=== PATIENT | male | born 1955 | race Caucasian/White ===

== ENCOUNTER 2018-06-14 09:23 | Observation (INO) | payer BC, MEDICARE, OTHER ==
[2018-06-14] MEDS ORDERED: MORPHINE SULFATE 4 MG/ML SYRINGE IVP STA (10:24)
--- NOTE | 2018-06-14 10:35 | ED ---
Abdominal Pain HPI - General Chief Complaint: Abdominal Pain Stated Complaint: ABDOMINAL PAIN Time Seen by Provider: 06/14/18 09:52 Source: patient Mode of arrival: ambulatory Limitations: no limitations - History of Present Illness Initial Comments: 63-year-old male with past medical history of diabetes, hypertension presenting today for chief complaint of abdominal pain 3 days. Patient states he has had abdominal pain for the past 2-3 days, states is his mid abdomen that has been increasing in intensity for the past 2-3 days. He states it is sharp without radiation. He states he has had on-and-off nausea and no appetite. He denies chest pain, dyspnea, dyspnea exertion, headache, fever, chills, vomiting, diarrhea, constipation, melena, hematochezia, hematemesis. He denies leg swelling, back pain, dysuria, urgency frequency, testicular pain. Remaining review of systems negative. Last BM this morning-normal. Pt has had an open abdominal surgery after a mesentery tear from trauma, >10 years ago. Upon arrival she is afebrile, mild elevation of blood pressure. Remaining VS within acceptable limits. - Related Data Home Medications Medication Instructions Recorded Confirmed Insulin Degludec [Tresiba] 70 units SQ HS 06/14/18 06/14/18 Insulin NPH/Reg Insulin 70/30 50 unit SQ AC-TID 06/14/18 06/14/18 [humuLIN 70/30 VIAL] Lisinopril [Zestril] 20 mg PO DAILY 06/14/18 06/14/18 Tamsulosin [Flomax] 0.4 mg PO HS 06/14/18 06/14/18 metFORMIN HCL [Glucophage] 1,000 mg PO BID 06/14/18 06/14/18 Previous Rx's Medication Instructions Recorded Atorvastatin [Lipitor] 80 mg PO DAILY #30 tab 09/06/14 Metoprolol Tartrate [Lopressor] 50 mg PO BID #60 tab 09/06/14 Nitroglycerin Sl Tabs [Nitrostat] 0.4 mg SUBLINGUAL Q5M PRN #25 tab 09/06/14 amLODIPine [Norvasc] 10 mg PO DAILY #30 tab 09/06/14 hydrALAZINE HCL [Apresoline] 50 mg PO TID #90 tab 09/06/14 Allergies Allergy/AdvReac Type Severity Reaction Status Date / Time No Known Allergies Allergy Verified 06/14/18 10:12 Review of Systems ROS Statement: Those systems with pertinent positive or pertinent negative responses have been documented in the HPI. ROS Other: All systems not noted in ROS Statement are negative. Past Medical History Past Medical History: Diabetes Mellitus, Hyperlipidemia, Hypertension, Sleep Apnea/CPAP/BIPAP History of Any Multi-Drug Resistant Organisms: None Reported Past Surgical History: Heart Catheterization, Orthopedic Surgery, Tonsillectomy Additional Past Surgical History / Comment(s): Surgery for a previous bowel perforation. UPPP, torn bicept. Past Anesthesia/Blood Transfusion Reactions: No Reported Reaction Past Psychological History: No Psychological Hx Reported Smoking Status: Current every day smoker Past Alcohol Use History: Rare Past Drug Use History: None Reported - Past Family History Father Family Medical History: Diabetes Mellitus, Hypertension, Myocardial Infarction (ME) General Exam - General Exam Comments Initial Comments: General: The patient is awake and alert, pt appears uncomfortable Eye: Pupils are equal, round and reactive to light, extra-ocular movements are intact. No nystagmus. There is normal conjunctiva bilaterally. No signs of i cterus. Ears, nose, mouth and throat: There are moist mucous membranes and no oral lesions. Neck: The neck is supple, there is no tenderness or JVD. Cardiovascular: There is a regular rate and rhythm. No murmur, rub or gallop is appreciated. Respiratory: Lungs are clear to auscultation, respirations are non-labored, breath sounds are equal. No wheezes, stridor, rales, or rhonchi. Gastrointestinal: No noted diaphoresis, jaundice, pallor, protecting postures or squirming. Symmetrical pigmentation of abdomen without signs of inflammation. Large midline scar from epigastric region to below the navel. Umbilicus mildline, inverted without swelling. No dilated veins. Abdomen contour obese. No visible masses. No peristalsis, aortic pulsations, or ventral hernia. Bowel sounds audible in all 4 quadrants, unremarkable. Tenderness to palpation of the mid/lower abdomen diffusely, rigidity or guarding. No protecting postures.. Liver edge, not palpable. Spleen edge, right and left kidney not palpable. Superior bladder margin non-tender. Special Testing: Negative Star, Rovsing, McBurney, Jillian, cutaneous hyperesthesia. Iliopsoas and obturator tests negative bilaterally. Negative Heel Jar test. No CVA tenderness. Digital rectal exam deferred. Negative west turners or cullens sign Musculoskeletal: Normal ROM, no tenderness. Strength 5/5. Sensation intact. Pulses equal bilaterally 2+. Neurological: A&O x 3. CN II-XII intact, There are no obvious motor or sensory deficits. Coordination appears grossly intact. Speech is normal. Skin: Skin is warm and dry and no rashes or lesions are noted. Psychiatric: Cooperative, appropriate mood & affect, normal judgment. Limitations: no limitations Course Vital Signs 06/14/18 06/14/18 06/14/18 09:34 11:45 12:28 Temperature 98.1 F Pulse Rate 89 59 L 55 L Respiratory 18 18 18 Rate Blood Pressure 156/72 131/75 115/89 O2 Sat by Pulse 98 97 94 L Oximetry Medical Decision Making - Medical Decision Making Laboratory studies are within acceptable limits. Elevation of alk phos noted, transaminases within normal limits. Hemoglobin stable. EKG revealed no acute findings, troponin negative. Patient denied chest pain or dyspnea. Complaints abdominal in nature. Patient had no rigidity or guarding. But did have significant tenderness to deep palpation face of the mid abdomen. Patient does appear mildly jaundiced. CT revealed findings consistent with probable pancreatic carcinoma of the head with metastasis to the lungs, liver and possibly colon. Patient denies melena hematochezia. Findings were discussed with patient including concern for malignancy with metastases. Patient will be admitted for evaluation by otalgia oncology. Patient will be given pain medication. Patient will be admitted to Dr. Chaudhry, who accepted admission after speaking with Dr. Weston. Case is discussed in detail with Dr. Weston time provider who is agreeable plan of care and patient admission. I answered all patient's questions to the best my ability prior to transfer to the floor. Patient provided copy of CT read, after request. . - Lab Data Result diagrams: 06/14/18 11:13 06/14/18 11:13 Lab Results 06/14/18 06/14/18 06/14/18 Range/Units 11:13 11:13 11:13 WBC 11.0 H (3.8-10.6) k/uL RBC 5.58 (4.30-5.90) m/uL Hgb 14.5 (13.0-17.5) gm/dL Hct 43.2 (39.0-53.0) % MCV 77.4 L (80.0-100.0) fL MCH 26.0 (25.0-35.0) pg MCHC 33.6 (31.0-37.0) g/dL RDW 15.3 (11.5-15.5) % Plt Count 438 (150-450) k/uL Neutrophils % 73 % Lymphocytes % 14 % Monocytes % 8 % Eosinophils % 2 % Basophils % 1 % Neutrophils # 8.0 H (1.3-7.7) k/uL Lymphocytes # 1.6 (1.0-4.8) k/uL Monocytes # 0.9 (0-1.0) k/uL Eosinophils # 0.3 (0-0.7) k/uL Basophils # 0.1 (0-0.2) k/uL Sodium 134 L (137-145) mmol/L Potassium 5.2 H (3.5-5.1) mmol/L Chloride 96 L (98-107) mmol/L Carbon Dioxide 26 (22-30) mmol/L Anion Gap 12 mmol/L BUN 22 H (9-20) mg/dL Creatinine 0.85 (0.66-1.25) mg/dL Est GFR (CKD-EPI)AfAm >90 (>60 ml/min/1.73 sqM) Est GFR (CKD-EPI)NonAf >90 (>60 ml/min/1.73 sqM) Glucose 169 H (74-99) mg/dL Calcium 9.9 (8.4-10.2) mg/dL Total Bilirubin 0.8 (0.2-1.3) mg/dL AST 20 (17-59) U/L ALT 31 (21-72) U/L Alkaline Phosphatase 158 H (38-126) U/L Troponin I 0.022 (0.000-0.034) ng/mL Total Protein 6.5 (6.3-8.2) g/dL Albumin 3.9 (3.5-5.0) g/dL Amylase <30 L (30-110) U/L Lipase 29 (23-300) U/L Urine Color Urine Appearance (Clear) Urine pH (5.0-8.0) Ur Specific [place] (1.001-1.035) Urine Protein (Negative) Urine Glucose (UA) (Negative) Urine Ketones (Negative) Urine Blood (Negative) Urine Nitrite (Negative) Urine Bilirubin (Negative) Urine Urobilinogen (<2.0) mg/dL Ur Leukocyte Esterase (Negative) 06/14/18 Range/Units 11:50 WBC (3.8-10.6) k/uL RBC (4.30-5.90) m/uL Hgb (13.0-17.5) gm/dL Hct (39.0-53.0) % MCV (80.0-100.0) fL MCH (25.0-35.0) pg MCHC (31.0-37.0) g/dL RDW (11.5-15.5) % Plt Count (150-450) k/uL Neutrophils % % Lymphocytes % % Monocytes % % Eosinophils % % Basophils % % Neutrophils # (1.3-7.7) k/uL Lymphocytes # (1.0-4.8) k/uL Monocytes # (0-1.0) k/uL Eosinophils # (0-0.7) k/uL Basophils # (0-0.2) k/uL Sodium (137-145) mmol/L Potassium (3.5-5.1) mmol/L Chloride (98-107) mmol/L Carbon Dioxide (22-30) mmol/L Anion Gap mmol/L BUN (9-20) mg/dL Creatinine (0.66-1.25) mg/dL Est GFR (CKD-EPI)AfAm (>60 ml/min/1.73 sqM) Est GFR (CKD-EPI)NonAf (>60 ml/min/1.73 sqM) Glucose (74-99) mg/dL Calcium (8.4-10.2) mg/dL Total Bilirubin (0.2-1.3) mg/dL AST (17-59) U/L ALT (21-72) U/L Alkaline Phosphatase (38-126) U/L Troponin I (0.000-0.034) ng/mL Total Protein (6.3-8.2) g/dL Albumin (3.5-5.0) g/dL Amylase (30-110) U/L Lipase (23-300) U/L Urine Color Yellow Urine Appearance Clear (Clear) Urine pH 5.5 (5.0-8.0) Ur Specific [place] 1.022 (1.001-1.035) Urine Protein Trace H (Negative) Urine Glucose (UA) Negative (Negative) Urine Ketones Negative (Negative) Urine Blood Negative (Negative) Urine Nitrite Negative (Negative) Urine Bilirubin Negative (Negative) Urine Urobilinogen <2.0 (<2.0) mg/dL Ur Leukocyte Esterase Negative (Negative) Disposition Clinical Impression: Abdominal pain, Pancreatic carcinoma Disposition: ADMITTED IP TO THIS [facility] Condition: Stable Is patient prescribed a controlled substance at d/c from ED?: No Referrals: Loc Gonzalez MD [Primary Care Provider] - 1-2 days Time of Disposition: 13:43 Decision to Admit Reason: Admit from EC Decision Date: 06/14/18 Decision Time: 13:43
[2018-06-14 12:00] LABS: ALT 31 U/L (21-72); Albumin 3.9 g/dL (3.5-5.0); Alkaline Phosphatase 158 U/L (38-126); Amylase <30 U/L (30-110); Blood Urea Nitrogen 22 mg/dL (9-20); Carbon Dioxide 26 mmol/L (22-30); Glucose 169 mg/dL (74-99); Total Protein 6.5 g/dL (6.3-8.2)
[2018-06-14 12:07] LABS: AST 20 U/L (17-59); Anion Gap 12 mmol/L; Calcium 9.9 mg/dL (8.4-10.2); Chloride 96 mmol/L (98-107); Lipase 29 U/L (23-300); Potassium 5.2 mmol/L (3.5-5.1); Sodium 134 mmol/L (137-145); Total Bilirubin 0.8 mg/dL (0.2-1.3)
[2018-06-14 12:15] LABS: Basophils # (A) 0.1 k/uL (0-0.2); Basophils % (A) 1 %; Eosinophils # (A) 0.3 k/uL (0-0.7); Eosinophils % (A) 2 %; HCT 43.2 % (39.0-53.0); HGB 14.5 gm/dL (13.0-17.5); Lymphocytes # (A) 1.6 k/uL (1.0-4.8); Lymphocytes % (A) 14 %; MCHC 33.6 g/dL (31.0-37.0); MCV 77.4 fL (80.0-100.0); Mean Platelet Volume 6.8; Monocytes # (A) 0.9 k/uL (0-1.0); Monocytes % (A) 8 %; Neutrophils % (A) 73 %; Platelet Count 438 k/uL (150-450); RBC 5.58 m/uL (4.30-5.90); RDW 15.3 % (11.5-15.5)
[2018-06-14 12:50] LABS: Appearance,Urine Clear (Clear); Bilirubin,Urine Negative (Negative); Blood,Urine Negative (Negative); Color,Urine Yellow; Glucose,Urine (UA) Negative (Negative); Ketones,Urine Negative (Negative); Leukocyte Esterase,Urine Negative (Negative); Nitrite,Urine Negative (Negative); PH, Urine 5.5 (5.0-8.0); Protein,Urine Trace (Negative); Specific Gravity,Urine 1.022 (1.001-1.035); Urobilinogen,Urine <2.0 mg/dL (<2.0)
--- NOTE | 2018-06-14 13:18 | CT ---
EXAMINATION TYPE: CT abdomen pelvis w con DATE OF EXAM: 06/14/2018 COMPARISON: HISTORY: Mid Abdominal pain. CT DLP: 1485.1 mGycm Automated exposure control for dose reduction was used. TECHNIQUE: Helical acquisition of images from the lung bases through the pelvis have been completed. CONTRAST: Performed without Oral Contrast and with IV Contrast, patient injected with 100 mL of Isovue 300. FINDINGS: LUNG BASES: Multiple scattered and subpleural subcentimeter nodular densities are present at the lung bases and have developed in the interval. No pleural or pericardial effusion. AORTA: No significant abnormality is appreciated. LIVER/GB: There are new low dense foci within the liver of varying sizes, the largest on axial image #16 measures approximately 3.7 cm in greatest transverse dimension by 4 cm in cephalad to caudal dime nsion towards the dome. Some peripheral enhancement is present, gallbladder is unremarkable PANCREAS: Suspect there is some mild pancreatic atrophy, pancreatic duct appears somewhat prominently in the body and tail. Suspect there is a head of pancreas mass measuring approximately 3.6 x 3.9 x 3 .9 cm. SPLEEN: No significant abnormality is seen. ADRENALS: No significant abnormality is seen. KIDNEYS: No significant abnormality is seen. REPRODUCTIVE ORGANS: Prostate is enlarged. BOWEL: Questionable annular lesion, focal wall thickening on axial image 19 in the splenic flexure o f the colon. No bowel obstruction. FREE AIR: No Free Air visible. ASCITES: None visible. PELVIC ADENOPATHY: None visualized. RETROPERITONEAL ADENOPATHY: Subcentimeter retroperitoneal nodes are present, nodes to the left later al aspect of the superior mesenteric artery on axial image 36 and 38 measures approximately 1.3 and 1 cm short axis respectively and were not seen on previous exam. URINARY BLADDER: No significant abnormality is seen. OSSEOUS STRUCTURES: Prosthesis in right hip arthroplasty may cause decrease sensitivity, there is st reak artifact present. IMPRESSION: METASTATIC DISEASE. SUSPECT PANCREATIC CARCINOMA PRIMARY. DIFFICULT TO EXCLUDE COLONIC MASS, FINDINGS MAY BE DUE TO LACK OF DISTENTION HOWEVER. No oral contrast was administered. Report relayed to Varghese cullen at the time of interpretation.
[2018-06-14] MEDS ORDERED: ONDANSETRON 4 MG/2 ML VIAL IVP PRN (13:43)
[2018-06-14] MEDS ORDERED: NALOXONE 0.4 MG/ML 1 ML VIAL IV PRN (13:43)
[2018-06-14] MEDS ORDERED: ALPRAZolam 0.25 MG TAB PO PRN (13:43)
[2018-06-14] MEDS ORDERED: HYDROmorphone 0.5 MG/0.5 ML SYRINGE IVP STA (13:59)
[2018-06-14] MEDS: SODIUM CHLORIDE 0.9% 1,000 ML IV SCH (15:35)
[2018-06-14 16:30] VITALS: BMI 34.5
[2018-06-14 17:16] LABS: Glucose,Whole Blood 168 mg/dL (75-99)
[2018-06-14] MEDS ORDERED: NITROGLYCERIN SL TABS 0.4 MG TAB SUBLINGUAL PRN (18:12)
[2018-06-14] MEDS: HYDROcodone/APAP 5-325MG 1 EACH TAB PO PRN (18:49)
[2018-06-14] MEDS: HYDROmorphone 0.5 MG/0.5 ML SYRINGE IVP PRN ×2 (18:51→22:58)
[2018-06-14 20:12] LABS: Glucose,Whole Blood 202 mg/dL (75-99)
[2018-06-14] MEDS: hydrALAZINE HCL 50 MG TAB PO SCH (20:41)
[2018-06-14] MEDS: METOPROLOL TARTRATE 50 MG TAB PO SCH (20:41)
[2018-06-14] MEDS: TAMSULOSIN 0.4 MG CAP.ER.24H PO SCH (20:41)
[2018-06-14] MEDS: ATORVASTATIN 80 MG TAB PO SCH (20:41)
[2018-06-14] MEDS: INSULIN ASPART (NovoLOG) 100 UNIT/ML VIAL SQ SCH (20:44)
[2018-06-14] MEDS ORDERED: INSULIN DETEMIR (LEVEMIR) 100 UNIT/ML SYR SQ SCH (21:00)
[2018-06-14] MEDS ORDERED: INSULIN ASPART (NovoLOG) 100 UNIT/ML VIAL SQ SCH (21:00)
[2018-06-14] MEDS ORDERED: ACETAMINOPHEN TAB 500 MG TAB PO PRN (21:32)
[2018-06-14] MEDS ORDERED: TEMAZEPAM 15 MG CAP PO PRN (21:32)
--- NOTE | 2018-06-14 22:40 | HP ---
HISTORY AND PHYSICAL DATE OF SERVICE: 06/14/2018 CHIEF COMPLAINT: Abdominal pain. HISTORY OF PRESENT ILLNESS: This 63-year-old gentleman with a past medical history of multiple medical problems including diabetes, hypertension, hyperlipidemia, and sleep apnea, history of cardiac catheterization, history of DJD being followed by Dr. Gonzalez in the outpatient setting, was complaining of abdominal pain for the last several days. The pain was in the mid abdomen/chest radiating to laterally with some on and off nausea and loss of appetite. Patient came to [facility] and admitted for further evaluation and treatment. On admission, the blood work showed a mildly elevated WBC 11, sodium 130, potassium 5.2. Amylase and lipase were within normal limits, but however the CT scan of the abdomen and pelvis showed multiple lesions in the liver and as well as possible suspicious lesions in the pancreatic head and mass and the patient was admitted for further evaluation treatment. There is no history of fever, rigors or chills. No history of headache. Loss of consciousness or seizures at this time. PAST MEDICAL HISTORY: History of diabetes, hypertension, hyperlipidemia, history of sleep apnea, history of cardiac catheterization, DJD, history of smoking. MEDICATIONS: Prior to admission, home medications are: 1. Insulin NPH 70/30 30 units subcu t.i.d. 2. Glucophage 1000 mg p.o. b.i.d. 3. Apresoline 50 mg t.i.d. 4. Norvasc 10 mg p.o. daily. 5. Flomax 0.4 q.h.s. 6. Nitrostat 0.4 sublingual p.r.n. 7. Lopressor 50 mg b.i.d. 8. Zestril 20 mg daily. 9. Tresecba 70 units subcu q.h.s. 10.Lipitor 80 mg q.h.s. ALLERGIES: None. FAMILY HISTORY: History of diabetes and hypertension and myocardial infarction in the family. SOCIAL HISTORY: Previous history of smoking. No history of current smoking, alcohol intake. REVIEW OF SYSTEMS: ENT: No diminished vision. No diminished hearing. CARDIOVASCULAR: S1, S2. No angina or palpitations. Respirations: No cough. GI as mentioned earlier. : No dysuria. NERVOUS SYSTEM: No numbness or weakness. ALLERGY/IMMUNOLOGY: No asthma or hayfever. MUSCULOSKELETAL: As mentioned earlier. HEMATOLOGY/ONCOLOGY: No history of anemia. ENDOCRINE: Diabetes. CONSTITUTIONAL: As mentioned earlier. Dermatology: Negative. Rheumatology: Negative. Psychiatry: As mentioned earlier. PHYSICAL EXAM: Alert, oriented x3, pulse 62, blood pressure 120/77, respiration 18, temperature 98.2, pulse ox 98% on room air. HEENT: Conjunctivae normal. Oral mucosa moist. Neck is no jugular venous distention. No carotid bruit. No lymph node enlargement. Cardiovascular system: S1, S2 muffled. No S3. No S4. RESPIRATORY: Breath sounds diminished in the bases. No rhonchi. No crackles. ABDOMEN: Soft, obese, nontender. No mass palpable. No hepatosplenomegaly. No ascites. Legs no edema. No swelling. NERVOUS SYSTEM: Higher functions as mentioned earlier. Moves all four extremities. No focal deficits. Lymphatics: No lymph nodes palpable in the neck, axillae or groin. Skin: No ulcer, rash or bleeding. LABS: WBC 11, hemoglobin 14.5, MCV 77.4, sodium 132, potassium 5.2, glucose 169, and alkaline phosphatase 158. ASSESSMENT: 1. Abdominal pain with the liver lesions and possibly pancreatic lesion, rule out metastatic malignancy. 2. Rule out chronic lesion. 3. Hyponatremia. 4. Hyperkalemia, mild. 5. Diabetes mellitus type 2. 6. Increased WBC. 7. Microcytosis. 8. Hypertension. 9. Hyperlipidemia. 10.Sleep apnea. 11.History of cardiac catheterization. 12.History of degenerative joint disease. 13.History of bowel perforation history. 14.History of uvulopalatopharyngoplasty. 15.History of degenerative joint disease. 16.Remote history of nicotine dependence. 17.Obesity with body mass of 34. RECOMMENDATIONS AND DISCUSSION: In this 63-year-old gentleman who presented with multiple complex medical issues, we will monitor the patient closely. Continue the current medications. Resume the home medications. Symptomatic treatment of the pain. Protonix. I would also recommend Gastroenterology and also Hematology Oncology consultations. Order a CT scan of the chest and a bone scan also. The patient also might benefit from endoscopies. The prognosis guarded because of multiple complex medical issues. DVT prophylaxis. See orders for details. Further recommendations to follow. C copy of dictation is being forwarded to Dr. Gonzalez who is the primary physician. MMODL / IJN: [id number] / TERRY
[2018-06-15] MEDS: HYDROmorphone 0.5 MG/0.5 ML SYRINGE IVP PRN ×6 (02:11→22:09)
[2018-06-15] MEDS: HYDROcodone/APAP 5-325MG 1 EACH TAB PO PRN ×3 (02:16→18:14)
[2018-06-15] MEDS: SODIUM CHLORIDE 0.9% 1,000 ML IV SCH ×2 (04:05→18:22)
[2018-06-15 06:52] LABS: Glucose,Whole Blood 59 mg/dL (75-99)
[2018-06-15 07:10] LABS: Glucose,Whole Blood 72 mg/dL (75-99)
[2018-06-15] MEDS ORDERED: INSULIN ASPART (NovoLOG) 100 UNIT/ML VIAL SQ SCH (07:30)
[2018-06-15] MEDS ORDERED: INSULN ASP PRT/INSULIN ASPART 100 UNIT/ML 10 ML VIAL SQ SCH (07:30)
[2018-06-15] MEDS: hydrALAZINE HCL 50 MG TAB PO SCH ×3 (08:05→22:11)
[2018-06-15] MEDS: METOPROLOL TARTRATE 50 MG TAB PO SCH ×2 (08:05→22:10)
[2018-06-15] MEDS: amLODIPine 10 MG TAB PO SCH (08:05)
[2018-06-15] MEDS: PANTOPRAZOLE 40 MG TABLET PO SCH (08:05)
[2018-06-15] MEDS: metFORMIN 500 MG TAB PO SCH ×2 (08:06→18:24)
[2018-06-15] MEDS: INSULIN ASPART (NovoLOG) 100 UNIT/ML VIAL SQ SCH ×6 (08:06→22:10)
[2018-06-15] MEDS: HEPARIN SODIUM,PORCINE 5,000 UNIT/ML 1 ML VIAL SQ SCH ×2 (08:07→22:10)
[2018-06-15] MEDS: LISINOPRIL 20 MG TAB PO SCH (08:07)
[2018-06-15 09:05] LABS: Basophils # (A) 0.1 k/uL (0-0.2); Basophils % (A) 1 %; Eosinophils # (A) 0.3 k/uL (0-0.7); Eosinophils % (A) 3 %; HCT 38.8 % (39.0-53.0); HGB 12.8 gm/dL (13.0-17.5); Lymphocytes % (A) 20 %; MCH 25.8 pg (25.0-35.0); MCV 78.4 fL (80.0-100.0); Mean Platelet Volume 6.6; Monocytes # (A) 0.8 k/uL (0-1.0); Monocytes % (A) 8 %; Neutrophils # (A) 6.6 k/uL (1.3-7.7); Neutrophils % (A) 66 %; Platelet Count 424 k/uL (150-450); RBC 4.95 m/uL (4.30-5.90); RDW 15.2 % (11.5-15.5); WBC 9.9 k/uL (3.8-10.6)
[2018-06-15 09:11] LABS: Anion Gap 8 mmol/L; Blood Urea Nitrogen 20 mg/dL (9-20); Calcium 9.4 mg/dL (8.4-10.2); Carbon Dioxide 30 mmol/L (22-30); Chloride 96 mmol/L (98-107); Glucose 65 mg/dL (74-99); Potassium 4.5 mmol/L (3.5-5.1); Sodium 134 mmol/L (137-145)
[2018-06-15 11:11] LABS: Glucose,Whole Blood 72 mg/dL (75-99)
[2018-06-15 11:42] LABS: INR 1.1 (<1.2); Prothrombin Time 11.4 sec (9.0-12.0)
--- NOTE | 2018-06-15 12:56 | US ---
Discontinued liver biopsy by ultrasound guidance. HISTORY: Liver masses Ultrasound performed for biopsy planning purposes. Due to difficulty in imaging, patient will be move d to CT for biopsy.
[2018-06-15] MEDS ORDERED: HYDROmorphone 1 MG/ML 1 ML SYRINGE IVP STA (13:24)
[2018-06-15 14:14] LABS: Glucose,Whole Blood 51 mg/dL (75-99)
--- NOTE | 2018-06-15 14:15 | CT ---
EXAMINATION TYPE: CT brain wo con DATE OF EXAM: 06/15/2018 COMPARISON: Metastatic disease INDICATION: Fever, Body aches DLP: 1207.9 mGycm, Automated exposure control for dose reduction was used. CONTRAST: None CT of the brain is performed utilizing 3 mm thick sections through the posterior fossa and 3 mm thick sections through the remaining calvarium. Study is performed within 24 hours of arrival to the hosp [facility]. No abnormal hyperdensity is present to suggest an acute intracranial hemorrhage. No mass lesion is evident. No acute infarcts are evident. No suspicious hypo or hyperdense areas to suggest metastatic disease o r secondary signs to suggest underlying metastatic disease is radiographically apparent. No suspiciou s osseous abnormality is evident. Ventricles and sulci are appropriate for the patient age. Paranasal sinuses and mastoid air cells within the [id number] are clear. IMPRESSIONS: 1. Unremarkable CT brain
--- NOTE | 2018-06-15 14:16 | CT ---
EXAMINATION TYPE: CT biopsy liver DATE OF EXAM: 06/15/2018 HISTORY: Liver mass COMPARISON: CT dated 06/14/2018 Maximal barrier technique was utilized. The skin overlying a suitable path to the liver mass was loc alized using CT and the overlying skin was prepped and draped. Lidocaine used for local anesthesia. A skin bhupendra made with a scalpel. Using CT guidance, access was gained to the lesion with an 18-gaug e needle coaxially through a 17-gauge needle guide. Core specimen submitted to cytology. 2 passes we re performed in all. Following the procedure no immediate complications. The patient is discharged in stable condition to observation. Hemostasis achieved. IMPRESSION: SUCCESSFUL CT GUIDED CORE BIOPSY liver mass. PATHOLOGY PENDING. THIS PROCEDURE WAS PERFORMED BY THE UNDERSIGNED.
[2018-06-15 14:39] LABS: Glucose,Whole Blood 69 mg/dL (75-99)
[2018-06-15 15:14] LABS: Glucose,Whole Blood 92 mg/dL (75-99)
--- NOTE | 2018-06-15 15:28 | P.CONS ---
History of Present Illness - Reason for Consult Consult date: 06/15/18 Liver lesions, colon thickening and possible pancreatic head mass on CT Requesting physician: Sherin Asher - Chief Complaint progressive abd pain - History of Present Illness Mr. Gould is a very pleasant 63 purvi old male with onset of upper abd pain x 1 week ago, he tried treating with prilosec and rolaids without relief, the progressed so he decided to come to hospital to be evaluated. He denied fever, chills, nausea, vomiting, diarrhea or constipation, dysphagia, chest pain, PATITO, recent illness, swelling, unintentional wt. loss, bleeding or other new oe unusual pain. He had a colonoscopy unknown years ago, remote history of smoking, no ETOH, father had prostate cancer. CT showed liver lesions, colon thickening and possible pancreatic head mass Past Medical History Past Medical History: Diabetes Mellitus, Hyperlipidemia, Hypertension, Sleep Apnea/CPAP/BIPAP History of Any Multi-Drug Resistant Organisms: None Reported Past Surgical History: Heart Catheterization, Joint Replacement, Orthopedic Surgery, Tonsillectomy Additional Past Surgical History / Comment(s): Surgery for a previous bowel perforation. UPPP, torn bicept, Left total knee, Right toal hip, Past Anesthesia/Blood Transfusion Reactions: No Reported Reaction Past Psychological History: No Psychological Hx Reported Smoking Status: Former smoker Past Alcohol Use History: Rare Past Drug Use History: None Reported - Past Family History Father Family Medical History: Diabetes Mellitus, Hypertension, Myocardial Infarction ([place]) Medications and Allergies Home Medications Medication Instructions Recorded Confirmed Type Metoprolol Tartrate [Lopressor] 50 mg PO BID #60 tab 09/06/14 06/14/18 Rx Nitroglycerin Sl Tabs [Nitrostat] 0.4 mg SUBLINGUAL Q5M PRN #25 tab 09/06/14 06/14/18 Rx amLODIPine [Norvasc] 10 mg PO DAILY #30 tab 09/06/14 06/14/18 Rx hydrALAZINE HCL [Apresoline] 50 mg PO TID #90 tab 09/06/14 06/14/18 Rx Atorvastatin [Lipitor] 80 mg PO HS 06/14/18 06/14/18 History Insulin Degludec [Tresiba] 70 units SQ HS 06/14/18 06/14/18 History Insulin NPH/Reg Insulin 70/30 30 unit SQ AC-TID 06/14/18 06/14/18 History [humuLIN 70/30 VIAL] Lisinopril [Zestril] 20 mg PO DAILY 06/14/18 06/14/18 History Tamsulosin [Flomax] 0.4 mg PO HS 06/14/18 06/14/18 History metFORMIN HCL [Glucophage] 1,000 mg PO BID 06/14/18 06/14/18 History Allergies Allergy/AdvReac Type Severity Reaction Status Date / Time No Known Allergies Allergy Verified 06/14/18 10:12 Physical Exam Vitals: Vital Signs Temp Pulse Pulse Pulse Resp BP BP 06/15/18 14:55 60 16 06/15/18 14:38 54 L 16 06/15/18 14:19 98.4 F 53 L 16 06/15/18 14:08 98.6 F 48 L 16 06/15/18 13:40 48 L 16 130/59 06/15/18 13:19 48 L 16 131/54 06/15/18 12:52 49 L 16 140/67 06/15/18 12:20 50 L 16 06/15/18 12:05 48 L 16 06/15/18 11:52 97.8 F 51 L 16 06/15/18 08:14 55 L 152/77 06/15/18 05:23 98.4 F 47 L 18 117/48 06/14/18 21:00 417 H 06/14/18 20:11 98.1 F 57 L 18 148/63 06/14/18 16:21 98 F 59 L 20 120/57 06/14/18 15:39 98.2 F 62 18 127/76 BP Pulse Ox 06/15/18 14:55 144/66 06/15/18 14:38 154/58 91 L 06/15/18 14:19 156/69 93 L 06/15/18 14:08 146/66 95 06/15/18 13:40 93 L 06/15/18 13:19 93 L 06/15/18 12:52 94 L 06/15/18 12:20 160/62 94 L 06/15/18 12:05 146/65 94 L 06/15/18 11:52 132/49 93 L 06/15/18 08:14 06/15/18 05:23 95 06/14/18 21:00 06/14/18 20:11 95 06/14/18 16:21 95 06/14/18 15:39 99 Intake and Output 06/15/18 06/15/18 06/15/18 06:59 14:59 22:59 Intake Total 590 600 Balance 590 600 Intake: Intake, IV Titration 600 Amount Sodium Chloride 0.9% 1, 600 000 ml @ 75 mls/hr IV . [id number] [facility] Rx#:[id number] Oral 590 Other: Voiding Method Toilet # Voids 3 - Constitutional General appearance: cooperative, no acute distress, obese - EENT Eyes: anicteric sclerae, EOMI, normal appearance ENT: hearing grossly normal, normal oropharynx - Neck left supraclavicular LN palpable, firm, fixed Neck: lymphadenopathy - Respiratory Respiratory: bilateral: CTA - Cardiovascular Rhythm: regular Heart sounds: normal: S1, S2 Abnormal Heart Sounds: no systolic murmur, no diastolic murmur, no rub, no S3 Gallop, no S4 Gallop, no click, no other leg Peripheral Edema: bilateral: None - Gastrointestinal General gastrointestinal: no absent bowel sounds, no decreased bowel sounds, no distended, no hepatomegaly, no hyperactive bowel sounds, normal bowel sounds, no organomegaly, no rigid, no scaphoid, soft, no splenomegaly, tenderness, no umbilical hernia, no ventral hernia Localized gastrointestinal: tender: epigastric periumbilical - Integumentary Integumentary: normal, normal turgor - Neurologic Neurologic: CNII-XII intact - Musculoskeletal Musculoskeletal: strength equal bilaterally - Psychiatric Psychiatric: A&O x's 3, appropriate affect, intact judgment & insight Results CBC & Chem 7: 06/15/18 08:39 06/15/18 08:39 Labs: Abnormal Lab Results - Last 24 Hours (Table) 06/14/18 06/14/18 06/15/18 Range/Units 17:15 20:11 06:51 Hgb (13.0-17.5) gm/dL Hct (39.0-53.0) % MCV (80.0-100.0) fL Sodium (137-145) mmol/L Chloride (98-107) mmol/L Glucose (74-99) mg/dL POC Glucose (mg/dL) 168 H 202 H 59 L (75-99) mg/dL 06/15/18 06/15/18 06/15/18 Range/Units 07:09 08:39 08:39 Hgb 12.8 L (13.0-17.5) gm/dL Hct 38.8 L (39.0-53.0) % MCV 78.4 L (80.0-100.0) fL Sodium 134 L (137-145) mmol/L Chloride 96 L (98-107) mmol/L Glucose 65 L (74-99) mg/dL POC Glucose (mg/dL) 72 L (75-99) mg/dL 06/15/18 06/15/18 06/15/18 Range/Units 11:09 14:13 14:37 Hgb (13.0-17.5) gm/dL Hct (39.0-53.0) % MCV (80.0-100.0) fL Sodium (137-145) mmol/L Chloride (98-107) mmol/L Glucose (74-99) mg/dL POC Glucose (mg/dL) 72 L 51 L 69 L (75-99) mg/dL CT scan - abdomen: report reviewed CT scan - pelvis: report reviewed Assessment and Plan Assessment: CT AP showing liver mass, colon thickening, possible pancreatic head mass Plan: CT chest to complete imaging work up GI consult for colonoscopy to eval colon thickening Consult to Radiology for core biopsy of liver mass Follow up in AM Attests: I have performed H&P and developed impression and plan of care of patient, discussed with dictator. I agree with dictated note, documented as a scribe.
--- NOTE | 2018-06-15 16:32 | PN ---
PROGRESS NOTE DATE OF SERVICE: 06/15/2018 This 63-year-old gentleman who was admitted with abdominal pain with liver lesions and possibly pancreatic lesions is being evaluated by possible endoscopies as well as liver biopsy today. Dr. Mayorga performed the CT-guided liver biopsy. Results are pending at this time. Multiple consultants are following the patient closely. The patient also had some hyp oglycemic episodes. Past medical history reviewed. REVIEW OF SYSTEMS: CARDIOVASCULAR SYSTEM: No angina, palpitations. RESPIRATORY SYSTEM: As mentioned earlier. GI: As mentioned earlier. : As mentioned earlier. NERVOUS SYSTEM: No numbness, weakness. ENDOCRINE: As mentioned earlier. CURRENT MEDICATIONS: Reviewed. They include: 1. Tylenol 500 mg q.6 p.r.n. 2. [place] 5 mg q.6 p.r.n. 3. Xanax 0.25 q.6 p.r.n. 4. Norvasc. 5. Lipitor 80 mg. 6. Heparin 5000 units subcutaneously b.i.d. 7. Apresoline 50 mg t.i.d. 8. Dilaudid p.r.n. 9. NovoLog scale. 10.Levemir 60 units subcutaneously at bedtime. 11.Zestril 20 mg. 12.Glucophage 1000 mg p.o. b.i.d. 13.Lopressor 50 mg b.i.d. 14.Narcan 0.2 q.2 p.r.n. 15.Nitrostat. 16.Zofran 4 mg q.8 p.r.n. 17.Protonix 40 mg daily. 18.Flomax 0.4 at bedtime. 19.Restoril 15 mg at bedtime p.r.n. ALLERGIES: NONE. PHYSICAL EXAMINATION: Patient is alert, oriented x3. The pulse is 54, blood pressure 154/58, respiration 16, temperature 98.4, pulse ox 91% on room air. HEENT: Conjunctivae normal. Oral mucosa moist. NECK: No jugular venous distention. No carotid bruit. No lymph node enlargement. CARDIOVASCULAR SYSTEM: S1, S2 muffled. RESPIRATORY SYSTEM: Breath sounds diminished at the bases. Scattered rhonchi and crackles. ABDOMEN: Soft, non-tender. No mass palpable. LEGS: No edema. No swelling. NERVOUS SYSTEM: Higher functions as mentioned earlier. Moves all 4 limbs. No focal motor or sensory deficit. LYMPHATICS: No lymph node palpable in neck, axillae or groin. SKIN: No ulcer, rash, bleeding. JOINTS: No active deforming arthropathy. LABS: WBC 9.9, hemoglobin 12.8. Sodium 134, potassium 4.5, glucose 51 and 69. ASSESSMENT: 1. Abdominal pain with multiple liver lesions, possible pancreatic lesion. Rule out metastatic malignancy, status post liver biopsy. 2. Rule out colonic lesion. 3. Hyponatremia. 4. Hyperkalemia, mild. 5. Diabetes mellitus, type 2. 6. Increased white count. 7. Microcytosis. 8. Hypertension. 9. Hyperlipidemia. 10.Sleep apnea. 11.History of cardiac catheterization. 12.History of degenerative joint disease. 13.History of bowel perforation. 14.History of uvulopalatopharyngoplasty. 15.Remote history of nicotine dependence. 16.Obesity with body mass index 34. RECOMMENDATIONS AND DISCUSSION: I recommend to continue current medications, continue with the monitoring, symptomatic treatment. Otherwise at this time I would recommend continuing with GI and hematology/oncology evaluations. Biopsy report as planned earlier. Will cut down the dose of insulin. Please refer to the newly changed dose of insulins. Monitor closely. Overall prognosis guarded. Further recommendations to follow. MMODL / IJN: [id number] / MTDD
--- NOTE | 2018-06-15 17:06 | CT ---
EXAMINATION TYPE: CT chest wo con DATE OF EXAM: 06/15/2018 COMPARISON: 09/04/2014 HISTORY: Metastatic disease CT DLP: 700 mGycm, Automated exposure control for dose reduction was used. CONTRAST: Performed injected with 0 mL of Isovue 300. TECHNIQUE: Axial images were obtained at 5 mm thick sections. Reconstructed images are reviewed on [facility] computer in the coronal plane. FINDINGS: Portion of the thyroid visualized is normal. There is a 1.0 cm area of pneumonitis in the periphery of the right upper lung field. Series 4 image 10. Couple of faint areas of pneumonitis within the posterior left upper lobe. Series 4 image 12-13 c ouple areas of increased density are within the posterior right upper lobe. Series 4 image 16-17. Pne umonitis is within the periphery of the left lung is 0.3 cm nodules with thin the left lung adjacent to the mediastinum. Series 4 image 20. There is a 0.4 cm peripheral based nodule right middle lobe. S eries 4 image 26. Couple small areas of pneumonitis within the right midlung. There is fairly extensi ve peripheral based areas of irregular increased density. There is an area of increased opacity adjac ent to the major fissure on the right within the right middle lobe. 4 image 38. Punctate nodules jimenez cent to the periphery of the lung at this level. 0.6 cm density is adjacent to the right diaphragm. S eries 4 image 41. No enlarged mediastinal or hilar adenopathy is evident. Scattered small lymph nodes are pretracheal space. The ascending aorta diameter at the level of the main pulmonary artery is 3.1 cm. The main p ulmonary artery diameter at the bifurcation is 3.3 cm. Consider pulmonary hypertension. Coronary brenda ry calcification is present. Limited CT sections are obtained through the upper abdomen. There is a 3.2 cm hypodense area within t he superior right lobe liver with ill-defined margins suspicious for metastatic lesion. IMPRESSIONS: 1. There is extensive peripheral based infiltrate within the bilateral lungs. There are scattered sma ll nodules present discussed above. 2 couple areas of more suspicious groundglass opacities include a 1.4 cm area adjacent to the major fissure on the right near the lung base and at the periphery of th e right apex measuring 1.0 cm. These findings are nonspecific but could be related to metastatic dise ase.
[2018-06-15 17:35] LABS: Glucose,Whole Blood 187 mg/dL (75-99)
--- NOTE | 2018-06-15 18:09 | NM ---
EXAMINATION TYPE: NM bone scan whole body DATE OF EXAM: 06/15/2018 COMPARISON: NONE HISTORY: Possible metastatic disease Delayed whole-body scanning was performed following the injection of 25.2 mCi Tc 99m MDP. Images acq uired 7 hours post injection. FINDINGS: There is focal increased uptake in the posterior left eighth rib. There is bilateral increased uptake at the AC joints consistent with arthritic disease. There is increased uptake at the right sternocla vicular joint. This is nonspecific. There is increased uptake in the left midfoot consistent with art hritic disease. There is increased uptake at the first carpometacarpal joints of both hands also cons istent with arthritic disease. There is evidence of left knee prosthesis. IMPRESSION: Multiple areas of increased uptake consistent with arthritic disease. Single focus of uptake in the l eft eighth rib is nonspecific. Also nonspecific increased uptake at the right sternoclavicular joint. Metastatic disease is possible in these 2 locations.
--- NOTE | 2018-06-15 18:59 | P.PN ---
Subjective Progress Note Date: 06/15/18 Principal diagnosis: Abdominal pain Attempted to see the patient on multiple occasions today, however the patient was having liver biopsy with the interventional radiology service. Will see the patient tomorrow, with full consultation to follow. Objective - Vital Signs Vital signs: Vital Signs Temp 98.4 F 06/15/18 14:19 Pulse 56 L 06/15/18 17:19 Resp 16 06/15/18 14:55 BP 174/74 06/15/18 17:19 Pulse Ox 91 L 06/15/18 14:38 Intake & Output 06/14/18 06/15/18 06/15/18 18:59 06:59 18:59 Intake Total 1180 600 Balance 1180 600 Weight 104.326 kg Intake: Intake, IV Titration 600 Amount Sodium Chloride 0.9% 1, 600 000 ml @ 75 mls/hr IV . [id number] [facility] Rx#:[id number] Oral 1180 Other: Voiding Method Toilet Toilet # Voids 3 - Labs CBC & Chem 7: 06/15/18 08:39 06/15/18 08:39 Labs: Abnormal Lab Results - Last 24 Hours (Table) 06/14/18 06/15/18 06/15/18 Range/Units 20:11 06:51 07:09 Hgb (13.0-17.5) gm/dL Hct (39.0-53.0) % MCV (80.0-100.0) fL Sodium (137-145) mmol/L Chloride (98-107) mmol/L Glucose (74-99) mg/dL POC Glucose (mg/dL) 202 H 59 L 72 L (75-99) mg/dL 06/15/18 06/15/18 06/15/18 Range/Units 08:39 08:39 11:09 Hgb 12.8 L (13.0-17.5) gm/dL Hct 38.8 L (39.0-53.0) % MCV 78.4 L (80.0-100.0) fL Sodium 134 L (137-145) mmol/L Chloride 96 L (98-107) mmol/L Glucose 65 L (74-99) mg/dL POC Glucose (mg/dL) 72 L (75-99) mg/dL 06/15/18 06/15/18 06/15/18 Range/Units 14:13 14:37 17:34 Hgb (13.0-17.5) gm/dL Hct (39.0-53.0) % MCV (80.0-100.0) fL Sodium (137-145) mmol/L Chloride (98-107) mmol/L Glucose (74-99) mg/dL POC Glucose (mg/dL) 51 L 69 L 187 H (75-99) mg/dL
[2018-06-15 20:41] LABS: Glucose,Whole Blood 209 mg/dL (75-99)
[2018-06-15] MEDS ORDERED: INSULIN DETEMIR (LEVEMIR) 100 UNIT/ML SYR SQ SCH (21:00)
[2018-06-15] MEDS: ATORVASTATIN 80 MG TAB PO SCH (22:11)
[2018-06-15] MEDS: TAMSULOSIN 0.4 MG CAP.ER.24H PO SCH (22:11)
[2018-06-15 22:46] VITALS: RESP 18
[2018-06-16] MEDS: HYDROcodone/APAP 5-325MG 1 EACH TAB PO PRN (01:03)
[2018-06-16] MEDS: HYDROmorphone 0.5 MG/0.5 ML SYRINGE IVP PRN ×5 (01:03→13:17)
[2018-06-16] MEDS: SODIUM CHLORIDE 0.9% 1,000 ML IV SCH ×2 (04:13→07:17)
[2018-06-16 06:52] LABS: Glucose,Whole Blood 162 mg/dL (75-99)
[2018-06-16] MEDS: LISINOPRIL 20 MG TAB PO SCH (07:48)
[2018-06-16] MEDS: hydrALAZINE HCL 50 MG TAB PO SCH (07:48)
[2018-06-16] MEDS: PANTOPRAZOLE 40 MG TABLET PO SCH (07:48)
[2018-06-16] MEDS: metFORMIN 500 MG TAB PO SCH (07:48)
[2018-06-16] MEDS: amLODIPine 10 MG TAB PO SCH (07:48)
[2018-06-16] MEDS: INSULIN ASPART (NovoLOG) 100 UNIT/ML VIAL SQ SCH ×4 (07:49→12:58)
[2018-06-16] MEDS: HEPARIN SODIUM,PORCINE 5,000 UNIT/ML 1 ML VIAL SQ SCH (07:49)
[2018-06-16] MEDS: METOPROLOL TARTRATE 50 MG TAB PO SCH (07:51)
[2018-06-16 09:13] LABS: Basophils # (A) 0.1 k/uL (0-0.2); Basophils % (A) 1 %; Eosinophils # (A) 0.3 k/uL (0-0.7); Eosinophils % (A) 3 %; HCT 36.3 % (39.0-53.0); Lymphocytes # (A) 1.4 k/uL (1.0-4.8); Lymphocytes % (A) 14 %; MCH 26.1 pg (25.0-35.0); MCHC 33.1 g/dL (31.0-37.0); MCV 78.8 fL (80.0-100.0); Mean Platelet Volume 7.2; Monocytes # (A) 0.9 k/uL (0-1.0); Monocytes % (A) 10 %; Neutrophils % (A) 71 %; Platelet Count 360 k/uL (150-450); RBC 4.61 m/uL (4.30-5.90); RDW 15.1 % (11.5-15.5); WBC 9.8 k/uL (3.8-10.6)
[2018-06-16 09:26] LABS: Anion Gap 5 mmol/L; Blood Urea Nitrogen 16 mg/dL (9-20); Calcium 9.1 mg/dL (8.4-10.2); Carbon Dioxide 30 mmol/L (22-30); Chloride 98 mmol/L (98-107); Glucose 128 mg/dL (74-99); Potassium 5.1 mmol/L (3.5-5.1); Sodium 133 mmol/L (137-145)
[2018-06-16 10:57] LABS: Glucose,Whole Blood 76 mg/dL (75-99)
--- NOTE | 2018-06-16 11:54 | P.PN ---
Subjective Progress Note Date: 06/16/18 Principal diagnosis: Liver lesions, colon thickening, question of a pancreatic head mass In follow-up today patient states he is doing okay, his pain is fairly well- controlled, it can be worse at some times, he is status post a liver biopsy, no complications post procedure, states his appetite is okay, denies nausea or vomiting, he had a bowel movement today, he states that a bowel movement every 2-3 days is normal for him. He is looking for to going home Objective - Vital Signs Vital signs: Vital Signs Temp 97.9 F 06/16/18 05:42 Pulse 59 L 06/16/18 05:42 Resp 18 06/16/18 05:42 BP 162/73 06/16/18 05:42 Pulse Ox 94 L 06/16/18 05:42 Intake & Output 06/15/18 06/16/18 06/16/18 18:59 06:59 18:59 Intake Total 600 1180 Balance 600 1180 Intake: Intake, IV Titration 600 Amount Sodium Chloride 0.9% 1, 600 000 ml @ 75 mls/hr IV . [id number] [facility] Rx#:[id number] Oral 1180 Other: Voiding Method Toilet Toilet Toilet # Voids 2 - Exam Well-developed, overweight, male, sitting in the chair, no acute distress, alert and oriented 4, no respiratory distress noted, respirations even and unlabored, no swelling in the legs, patient is independently ambulatory, skin is warm and dry - Labs CBC & Chem 7: 06/16/18 08:36 06/16/18 08:36 Labs: Abnormal Lab Results - Last 24 Hours (Table) 06/15/18 06/15/18 06/15/18 Range/Units 14:13 14:37 17:34 Hgb (13.0-17.5) gm/dL Hct (39.0-53.0) % MCV (80.0-100.0) fL Sodium (137-145) mmol/L Glucose (74-99) mg/dL POC Glucose (mg/dL) 51 L 69 L 187 H (75-99) mg/dL 06/15/18 06/16/18 06/16/18 Range/Units 20:39 06:50 08:36 Hgb 12.0 L (13.0-17.5) gm/dL Hct 36.3 L (39.0-53.0) % MCV 78.8 L (80.0-100.0) fL Sodium (137-145) mmol/L Glucose (74-99) mg/dL POC Glucose (mg/dL) 209 H 162 H (75-99) mg/dL 06/16/18 Range/Units 08:36 Hgb (13.0-17.5) gm/dL Hct (39.0-53.0) % MCV (80.0-100.0) fL Sodium 133 L (137-145) mmol/L Glucose 128 H (74-99) mg/dL POC Glucose (mg/dL) (75-99) mg/dL Assessment and Plan Assessment: CT AP showing liver mass, colon thickening, possible pancreatic head mass. Patient is status post a liver biopsy. Patient has been seen by gastroenterology, awaiting plan for a colonoscopy to be done outpatient regarding the colon thickening. Pending results of liver biopsy and colonoscopy to determine further plan of care. CT chest reviewed, nonspecific findings in the lungs, future imaging will continue to monitor these areas Follow-up with Dr. Mcconnell in the next 2 weeks Abdominal pain, current analgesics seem to be controlling pain fairly well. Patient will be provided with a three-day prescription, this pain will be followed up when seen by Dr. Mcconnell. Patient was educated on the importance of maintaining bowel function while on narcotics. Plan: CT chest reviewed, nonspecific findings in the lungs, future imaging will continue to monitor these areas GI has seen patient, awaiting plan for colonoscopy to eval colon thickening Follow-up with Dr. Mcconnell in the next 2 weeks
[2018-06-16 11:55] VITALS: BP 140/64; PULSE 55; TEMP 97.4
--- NOTE | 2018-06-17 08:33 | DS ---
DISCHARGE SUMMARY DATE OF SERVICE: 06/16/2018 FINAL DIAGNOSES: 1. Abdominal pain with multiple liver lesions, possibly metastatic lesions with possible prior pancreatic primary, status post liver biopsy. 2. Rule out chronic mass. 3. Hyponatremia. 4. Hyperkalemia, mild. 5. Diabetes mellitus type 2. 6. Increased WBC. 7. Microcytosis/. 8. Hypertension. 9. Hyperlipidemia. 10.History of sleep apnea. 11.History of cardiac catheterization. 12.History of degenerative joint disease. 13.History of bowel perforation. 14.History of uvulopalatopharyngoplasty. 15.History of nicotine dependence. 16.History of obesity with body mass index of 34. DISCHARGE DISPOSITION: The patient will be discharged in a stable condition with guarded prognosis. HISTORY OF PRESENT ILLNESS: This is a 63-year-old gentleman with a past medical history of multiple medical problems was admitted with abdominal pain as well as multiple liver lesions and metastatic malignancy. The patient underwent a liver biopsy by interventional Radiology. Otherwise, the patient was monitored closely and the patient improved significantly. On exam, vitals are stable. CARDIOVASCULAR SYSTEM: S1, S2 normal. RESPIRATIONS: No rhonchi, no crackles. ABDOMEN: Soft, nontender. Patient is currently stable but the biopsy reports are pending at this time. Depending upon the biopsy report, they will proceed and Gastroenterology also the patient and considering colonoscopy on hold at this time.. Discharge diet is cardiac. Activity limited until followup. Follow up with Dr. Mcconnell as advised. Follow up with Dr. Gonzalez in 2-3 days. MEDICATIONS ARE: 1. Flomax 0.4 q.h.s. 2. Glucophage 1000 mg b.i.d. 3. Humulin 70/30 thirty units subcu b.i.d. 4. Lipitor 80 mg q.h.s. 5. Tresiba 70 units q.h.s. 6. Zestril 20 mg p.o. daily. 7. Apresoline 50 mg p.o. t.i.d. 8. Lopressor 50 mg p.o. b.i.d. 9. Nitrostat 0.4 sublingual p.r.n. 10.[place] 5 mg q.4 p.r.n. 11.Norvasc 10 mg p.o. daily. 12.Protonix 40 mg with breakfast. Once again, the patient will be discharged in a stable condition with guarded prognosis. MMODL / IJN: [id number] /
== END 2018-06-16 14:10 | disposition home or self-care (01) ==
LOC: EC 09:23 → 3NMEDONC 15:19
PROVIDERS: ADMIT Hospitalist; ATTEND Hospitalist
DX: R10.10 Upper abdominal pain, unspecified (principal); K76.9 Liver disease, unspecified; E87.1 Hypo-osmolality and hyponatremia; E87.5 Hyperkalemia; E11.9 Type 2 diabetes mellitus without complications; R71.8 Other abnormality of red blood cells; D72.829 Elevated white blood cell count, unspecified; R74.8 Abnormal levels of other serum enzymes; I10 Essential (primary) hypertension; E78.5 Hyperlipidemia, unspecified; G47.30 Sleep apnea, unspecified; E66.9 Obesity, unspecified; Z68.34 Body mass index [BMI] 34.0-34.9, adult; M19.90 Unspecified osteoarthritis, unspecified site; R11.0 Nausea; R63.0 Anorexia; Z79.4 Long term (current) use of insulin; Z79.899 Other long term (current) drug therapy; Z99.89 Dependence on other enabling machines and devices; F17.200 Nicotine dependence, unspecified, uncomplicated; Z87.19 Personal history of other diseases of the digestive system; Z82.49 Family history of ischemic heart disease and other diseases of the circulatory system
CPT/HCPCS: 96376 ×3; 96361 ×2; 96372 ×2; 96374; 96375; 99285; 36415; 93005; 80053; 80048 ×2; 82150; 83690; 84484; 85025 ×3; 85610; 81003; 88307; 76705; 47000; 70450; 71250; 74177; 78306; G0378 ×3; A9503; J2270; J1644 ×2; J1170 ×4; Q9967

== ENCOUNTER 2018-06-23 00:29 | Emergency (ER) | payer OTHER ==
[2018-06-23 00:40] VITALS: RESP 18
[2018-06-23 00:58] LABS: Glucose,Whole Blood 157 mg/dL (75-99)
--- NOTE | 2018-06-23 01:12 | ED ---
Altered Mental Status HPI - General Chief Complaint: Altered Mental Status Stated Complaint: hypoglycemia Time Seen by Provider: 06/23/18 00:44 Source: patient Mode of arrival: ambulatory - History of Present Illness Initial Comments: This patient is a 63-year-old man with history of diabetes. The patient was brought by ambulance after reportedly having episodes of hypoglycemia. When I interview the patient, he states that he remembers going to bed, and then the next he recalls was being the ambulance coming to the hospital. The patient believes that his must have phoned EMS. It is reported to me that the patient had been confused, he had gotten up to use the bathroom and then was sweaty and disoriented. EMS did reportedly give dextrose. The patient currently is alert, and without any complaints. He states that he feels well now. MD Complaint: altered mental status -: minutes(s) Severity: moderate Associated Symptoms: denies other symptoms Treatments Prior to Arrival: glucose - Related Data Home Medications Medication Instructions Recorded Confirmed Atorvastatin [Lipitor] 80 mg PO HS 06/14/18 06/14/18 Insulin Degludec [Tresiba] 70 units SQ HS 06/14/18 06/14/18 Insulin NPH/Reg Insulin 70/30 30 unit SQ AC-TID 06/14/18 06/14/18 [humuLIN 70/30 VIAL] Lisinopril [Zestril] 20 mg PO DAILY 06/14/18 06/14/18 Tamsulosin [Flomax] 0.4 mg PO HS 06/14/18 06/14/18 metFORMIN HCL [Glucophage] 1,000 mg PO BID 06/14/18 06/14/18 Previous Rx's Medication Instructions Recorded Metoprolol Tartrate [Lopressor] 50 mg PO BID #60 tab 09/06/14 Nitroglycerin Sl Tabs [Nitrostat] 0.4 mg SUBLINGUAL Q5M PRN #25 tab 09/06/14 amLODIPine [Norvasc] 10 mg PO DAILY #30 tab 09/06/14 hydrALAZINE HCL [Apresoline] 50 mg PO TID #90 tab 09/06/14 HYDROcodone/APAP 5-325MG [[place] 1 tab PO Q4HR PRN 3 Days #18 tab 06/16/18 5-325] Pantoprazole [Protonix] 40 mg PO AC-BRKFST #30 tablet. 06/16/18 Allergies Allergy/AdvReac Type Severity Reaction Status Date / Time No Known Allergies Allergy Verified 06/23/18 00:40 Review of Systems ROS Statement: Those systems with pertinent positive or pertinent negative responses have been documented in the HPI. ROS Other: All systems not noted in ROS Statement are negative. Constitutional: Denies: fever, chills, weakness Eyes: Denies: vision change ENT: Denies: throat pain, congestion Respiratory: Denies: cough, dyspnea Cardiovascular: Denies: chest pain, palpitations Gastrointestinal: Denies: abdominal pain, vomiting, diarrhea Genitourinary: Denies: dysuria, frequency Musculoskeletal: Denies: back pain Skin: Denies: rash Neurological: Denies: headache, weakness Past Medical History Past Medical History: Diabetes Mellitus, Hyperlipidemia, Hypertension, Sleep Apnea/CPAP/BIPAP Additional Past Medical History / Comment(s): dx pancreatic ca dx 2 days ago History of Any Multi-Drug Resistant Organisms: None Reported Past Surgical History: Heart Catheterization, Joint Replacement, Orthopedic Surgery, Tonsillectomy Additional Past Surgical History / Comment(s): Surgery for a previous bowel perforation. UPPP, torn bicept, Left total knee, Right toal hip, Past Anesthesia/Blood Transfusion Reactions: No Reported Reaction Past Psychological History: No Psychological Hx Reported Smoking Status: Former smoker Past Alcohol Use History: Rare Past Drug Use History: None Reported - Past Family History Father Family Medical History: Diabetes Mellitus, Hypertension, Myocardial Infarction ([place]) General Exam General appearance: alert, in no apparent distress Head exam: Present: atraumatic, normocephalic Eye exam: Present: normal appearance. Absent: scleral icterus, conjunctival injection ENT exam: Present: normal oropharynx Neck exam: Present: normal inspection, full ROM Respiratory exam: Present: normal lung sounds bilaterally. Absent: respiratory distress, wheezes, rales, rhonchi, stridor Cardiovascular Exam: Present: regular rate, normal rhythm, normal heart sounds. Absent: systolic murmur, diastolic murmur, rubs, gallop GI/Abdominal exam: Present: soft. Absent: distended, tenderness, guarding, rebound, mass Extremities exam: Present: normal inspection, normal capillary refill. Absent: pedal edema, calf tenderness Back exam: Present: normal inspection. Absent: CVA tenderness (R), CVA tenderness (L) Neurological exam: Present: alert, oriented X3. Absent: motor sensory deficit Skin exam: Present: warm, dry, intact, normal color. 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 Gustavo Castillo Matthew - EKG Data EKG shows normal: sinus rhythm, intervals (QRS duration 146 ms, consistent with left bundle branch block other intervals normal), QRS complexes (There is a left bundle-branch block) Rate: bradycardia (Right approximate 46 bpm) Interpretation: other (The left bundle-branch block is present on the comparison EKG) Disposition Clinical Impression: Hypoglycemia Disposition: HOME SELF-CARE Condition: Good Instructions (If sedation given, give patient instructions): Hypoglycemia in a Person with Diabetes (ED) Is patient prescribed a controlled substance at d/c from ED?: No Referrals: Loc Gonzalze MD [Primary Care Provider] - 1-2 days
[2018-06-23 01:51] VITALS: BP 133/73; TEMP 97.1
[2018-06-23 01:51] LABS: Glucose,Whole Blood 106 mg/dL (75-99)
[2018-06-23 02:57] LABS: Glucose,Whole Blood 80 mg/dL (75-99)
[2018-06-23 03:09] VITALS: PULSE 51
== END 2018-06-23 03:09 | disposition home or self-care (01) ==
LOC: EC 00:29
DX: E11.649 Type 2 diabetes mellitus with hypoglycemia without coma (principal); E78.5 Hyperlipidemia, unspecified; I10 Essential (primary) hypertension; G47.30 Sleep apnea, unspecified; Z99.89 Dependence on other enabling machines and devices; Z85.07 Personal history of malignant neoplasm of pancreas; Z87.891 Personal history of nicotine dependence; Z95.818 Presence of other cardiac implants and grafts; Z96.652 Presence of left artificial knee joint; Z96.641 Presence of right artificial hip joint; Z79.4 Long term (current) use of insulin; Z79.899 Other long term (current) drug therapy
CPT/HCPCS: 36415; 99285

== ENCOUNTER → 2018-06-29 | Outpatient (CLI) | payer OTHER | LOC: RADMRIMAIN 21:07 | PROVIDERS: ATTEND Registered Nurse Oncology | DX: Z53.9 Procedure and treatment not carried out, unspecified reason (principal) ==

== ENCOUNTER 2018-06-30 10:54 | Day surgery (SDC) | payer OTHER ==
[2018-06-28 11:41] VITALS: BMI 34.0
[~2018-06-30 10:54] MED LIST: DEXAMETHASONE SOD PHOSPHATE 10 MG/ML 1 ML VIAL IV ONE; HYDROmorphone 0.5 MG/0.5 ML SYRINGE IVP PRN; LACTATED RINGERS 1,000 ML IV SCH; LIDOCAINE 1% 20 ML VIAL (10MG/ML) FOR IV START INTRADERMA PRN; MIDAZOLAM 2 MG/2 ML VIAL IV PRN; ONDANSETRON 4 MG/2 ML VIAL IVP ONE; SCOPOLAMINE 1.5MG/72HR PATCH TRANSDERM ONE
[2018-06-30 11:19] VITALS: TEMP 97.5
[2018-06-30 11:31] LABS: Glucose,Whole Blood 118 mg/dL (75-99)
[2018-06-30] MEDS ORDERED: LIDOCAINE 1% INJ 10MG/ML (20 ML MDV) ONE (13:15)
[2018-06-30] MEDS ORDERED: PROPOFOL 10 MG/ML 20 ML VIAL IV ONE (13:15)
[2018-06-30 14:02] VITALS: RESP 16
--- NOTE | 2018-06-30 14:07 | P.PCN ---
Date of Procedure: 06/30/18 Description of Procedure: BRIEF HISTORY: Mr. Gould is a very pleasant 63 purvi old male who is seen after recent hospitalization which he had presented with onset of abdominal pain x 1 week ago. He had a colonoscopy unknown years ago, remote history of smoking, no ETOH, father had prostate cancer. CT during his hospitalization showed liver lesions, colon thickening and possible pancreatic head mass, and he has recently been diagnosed with pancreatic head cancer. PROCEDURE PERFORMED: Colonoscopy with polypectomy. PREOPERATIVE DIAGNOSIS: Abnormal computed tomography scan of the colon, abdominal pain. ESTIMATED BLOOD LOSS: Minimal. IV sedation per Anesthesia. PROCEDURE: After informed consent was obtained, the patient, was brought into the endoscopy unit. IV sedation was administered by Anesthesia under continuous monitoring. Digital rectal examination was normal. Initially the Olympus CF-190 flexible video colonoscope was then inserted in the rectum, gradually advanced into the cecum without any difficulty. Careful examination was performed as the scope was gradually being withdrawn. Ileocecal valve and the appendiceal orifice were visualized and appeared normal. Prep was poor. The visualized of the cecum, ascending colon, transverse colon, descending colon, sigmoid colon, and rectum appeared normal, however complete visualization was precluded by the poor prep as even with copious lavage stool remaining in the colon precluding complete visualization. 2 mm ascending colon polyp removed with cold forcep polypectomy. Retroflexion was performed in the rectum and no lesions were seen. The patient tolerated the procedure well. IMPRESSION: Poor prep with a large amount of liquid stool throughout the entire colon prohibiting complete visualization of the mucosa. The visualized colon from rectum to cecum appeared normal. 2 mm ascending colon polyp removed with cold forcep polypectomy. Mild internal hemorrhoids. RECOMMENDATIONS: Findings of this examination were discussed with the patient and his . Okay to resume diet. Await pathology from polypectomy. No large colonic masses or findings consistent with abnormal computed tomography scan were found. Visualization was severely impaired by a large amount of liquid stool noted throughout the colonoscopy or. At this time would recommend patient follow-up for repeat colonoscopy with 2 day prep in 3-6 months after she has completed treatment for pancreatic cancer.
[2018-06-30 14:17] VITALS: BP 143/70; PULSE 57
[2018-06-30 14:22] LABS: Glucose,Whole Blood 130 mg/dL (75-99)
== END 2018-06-30 14:35 | disposition home or self-care (01) ==
LOC: ORWHC2ENDO 10:54
PROVIDERS: ATTEND Internal Medicine
DX: K63.5 Polyp of colon (principal); K64.8 Other hemorrhoids; C25.0 Malignant neoplasm of head of pancreas; Z80.42 Family history of malignant neoplasm of prostate; Z87.891 Personal history of nicotine dependence; I25.10 Atherosclerotic heart disease of native coronary artery without angina pectoris; I10 Essential (primary) hypertension; E78.5 Hyperlipidemia, unspecified; E11.9 Type 2 diabetes mellitus without complications; G47.33 Obstructive sleep apnea (adult) (pediatric); Z79.4 Long term (current) use of insulin; Z79.891 Long term (current) use of opiate analgesic; Z79.899 Other long term (current) drug therapy
CPT/HCPCS: 88305; 45380; J2001; J2704

== ENCOUNTER 2018-08-05 08:35 | Day surgery (SDC) | payer OTHER ==
[2018-08-04 11:29] VITALS: BMI 32.5
[~2018-08-05 08:35] MED LIST changes: +HEPARIN SODIUM,PORCINE 5,000 UNIT/ML 1 ML VIAL SQ ONE; -LIDOCAINE 1% 20 ML VIAL (10MG/ML) FOR IV START INTRADERMA PRN; +Pre Op ABX Message 1 EACH MISC MISCELLANE ONE
[2018-08-05 09:03] LABS: Glucose,Whole Blood 239 mg/dL (75-99)
[2018-08-05 09:07] VITALS: RESP 16; TEMP 99
[2018-08-05] MEDS ORDERED: INSULIN ASPART (NovoLOG) 100 UNIT/ML VIAL SQ ONE (09:13)
[2018-08-05] MEDS ORDERED: LIDOCAINE 1% INJ 10MG/ML (20 ML MDV) SQ ONE (09:33)
[2018-08-05] MEDS ORDERED: HEPARIN SODIUM,PORCINE 100 UNIT/ML 5 ML VIAL IV ONE (09:34)
--- NOTE | 2018-08-05 09:53 | P.GSHP ---
History of Present Illness H&P Date: 08/05/18 Chief Complaint: Pancreatic cancer 63-year-old recently diagnosed with pancreatic cancer. Patient was found to have liver metastasis. She was having started on chemotherapy next week. He has not had a port previously. Here for Port-A-Cath placement. Past Medical History Past Medical History: Cancer, Diabetes Mellitus, Hyperlipidemia, Hypertension, Sleep Apnea/CPAP/BIPAP Additional Past Medical History / Comment(s): dx pancreatic ca in June History of Any Multi-Drug Resistant Organisms: None Reported Past Surgical History: Bowel Resection, Heart Catheterization, Joint Replacement, Orthopedic Surgery, Tonsillectomy Additional Past Surgical History / Comment(s): bowel surgery related to tear in mesenteric tissue. UPPP, repair torn bicep tendon, Left total knee, Right total hip Past Anesthesia/Blood Transfusion Reactions: No Reported Reaction Smoking Status: Former smoker - Past Family History Father Family Medical History: Diabetes Mellitus, Hypertension, Myocardial Infarction ([place]) Medications and Allergies Home Medications Medication Instructions Recorded Confirmed Type Metoprolol Tartrate [Lopressor] 50 mg PO BID #60 tab 09/06/14 08/04/18 Rx hydrALAZINE HCL [Apresoline] 50 mg PO TID #90 tab 09/06/14 08/04/18 Rx Atorvastatin [Lipitor] 80 mg PO HS 06/14/18 08/04/18 History Insulin Degludec [Tresiba] 5 - 15 units SQ HS 06/14/18 08/04/18 History Lisinopril [Zestril] 50 mg PO QAM 06/14/18 08/04/18 History Tamsulosin [Flomax] 0.4 mg PO HS 06/14/18 08/04/18 History metFORMIN HCL [Glucophage] 1,000 mg PO BID 06/14/18 08/04/18 History Pantoprazole [Protonix] 40 mg PO CANDELARIO-BRKFST #30 tablet. 06/16/18 08/04/18 Rx INSULIN LISPRO (humaLOG) [humaLOG] See Protocol SQ DIRECTED 06/28/18 08/04/18 History amLODIPine [Norvasc] 10 mg PO QAM 06/28/18 08/04/18 History HYDROcodone/APAP 5-325MG [[place] 1 - 2 tab PO Q6HR PRN 08/04/18 08/04/18 History 5-325] Morphine Sulfate [Morphine Sulfate 15 mg PO Q12H 08/04/18 08/04/18 History ER] Allergies Allergy/AdvReac Type Severity Reaction Status Date / Time No Known Allergies Allergy Verified 08/05/18 08:46 Surgical - Exam Vital Signs Temp Pulse Resp BP Pulse Ox 99.0 F 66 16 179/82 96 08/05/18 08:54 08/05/18 08:54 08/05/18 08:54 08/05/18 08:54 08/05/18 08:54 Physical exam: General: Well-developed, well-nourished HEENT: Normocephalic, sclerae nonicteric Abdomen: Nontender, nondistended Extremities: No edema Neuro: Alert and oriented Results - Labs Abnormal Lab Results - Last 24 Hours (Table) 08/05/18 Range/Units 08:58 POC Glucose (mg/dL) 239 H (75-99) mg/dL Assessment and Plan (1) Pancreatic cancer Narrative/Plan: Will proceed with Port-A-Cath placement this time. Risks of bleeding, infection, DVT, pneumothorax, catheter malfunction, anesthesia related complications were discussed. The patient understands and wishes to proceed. Current Visit: Yes Status: Acute Code(s): C25.9 - MALIGNANT NEOPLASM OF PANCREAS, UNSPECIFIED SNOMED Code(s): 615086731
[2018-08-05] MEDS ORDERED: ceFAZolin 2 GM in SODIUM CHLORIDE 0.9% 100 ML IVPB ONE (09:54)
[2018-08-05] MEDS ORDERED: diphenhydrAMINE 50 MG/ML 1 ML VIAL ONE (09:57)
[2018-08-05] MEDS ORDERED: PROPOFOL 10 MG/ML 20 ML VIAL IV ONE (09:57)
[2018-08-05] MEDS ORDERED: KETAMINE 10 MG/ML 20 ML VIAL ONE (09:57)
[2018-08-05] MEDS ORDERED: fentaNYL (PF) 50 MCG/ML 2 ML AMP ONE (09:57)
[2018-08-05] MEDS ORDERED: MIDAZOLAM 2 MG/2 ML VIAL ONE (09:57)
[2018-08-05] MEDS ORDERED: ceFAZolin IN SWFI 2 GM/20 ML SYRINGE IVP ONE (10:00)
[2018-08-05] MEDS ORDERED: NALOXONE 0.4 MG/ML 1 ML VIAL IV PRN (10:50)
[2018-08-05] MEDS ORDERED: HYDROcodone/APAP 5-325MG 1 EACH TAB PO PRN (10:50)
[2018-08-05 10:56] VITALS: BP 152/73
--- NOTE | 2018-08-05 11:02 | P.OP ---
Date of Procedure: 08/05/18 Procedure(s) Performed: PREOPERATIVE DIAGNOSIS: Pancreatic cancer POSTOPERATIVE DIAGNOSIS: Same PROCEDURE: Port-A-Cath placement SURGEON: Archana EBL: Minimal ANESTHESIA: Sedation COMPLICATIONS: None OPERATIVE PROCEDURE: Patient was brought and placed on the operative table in the supine position. The patient was sedated per anesthesia that time. The chest and neck were prepped and draped in usual sterile fashion. The ultrasound probe was used to identify the location of the right internal jugular vein. The skin was localized with lidocaine. The Seldinger needle was advanced into the IJ under ultrasound guidance. The wire was advanced through the needle under fluoroscopic guidance into the superior vena cava. A port pocket was created in the right infraclavicular location. The catheter was tunneled from the wire entrance site to the port pocket. The port was then connected to the catheter. The dilator introducer was threaded over the guidewire. The guidewire and dilator were then removed. The catheter was advanced through the introducer and introducer was then removed. The tip was seen to be in the right atrial junction. Port was flushed with both saline and a Hep-Lock solution. There was good flow both in and out of the port. The port was sutured in underlying tissues using 3-0 silk sutures. The subcutaneous tissues were reapproximated using 3-0 Vicryl sutures and the skin at both locations using 4-0 Monocryl sutures. Skin glue and sterile dressings then applied. DISPOSITION: Stable to recovery room
--- NOTE | 2018-08-05 11:16 | XR ---
EXAMINATION TYPE: XR chest 1V confirm line [facility] DATE OF EXAM: 08/05/2018 COMPARISON: 09/04/2014 INDICATION: Line placement TECHNIQUE: Single frontal view of the chest is obtained. FINDINGS: The heart size is normal. The pulmonary vasculature is normal. Some vague infiltrate may be within the left midlung. This is nonspecific. Port is present on the right with the tip in the superior vena cava region. No pneumothorax is eviden t. IMPRESSION: 1. Nonspecific infiltrate within the left midlung. 2. Placement of a right-sided port with tip in the superior vena cava region. No pneumothorax is evid ent.
--- NOTE | 2018-08-05 11:22 | FL ---
Fluoroscopy INDICATION: Pain FINDINGS: Fluoroscopy time: 8 seconds. Images obtained: 1. IMPRESSIONS: 1. Documentation of fluoroscopy.
[2018-08-05 11:27] VITALS: PULSE 62
[2018-08-05] MEDS ORDERED: INSULIN REGULAR 100 UNIT/ML VIAL SQ ONE (12:01)
[2018-08-05 12:14] LABS: Glucose,Whole Blood 212 mg/dL (75-99)
== END 2018-08-05 12:12 | disposition home or self-care (01) ==
LOC: OR 08:35
PROVIDERS: ATTEND Surgery
DX: C25.9 Malignant neoplasm of pancreas, unspecified (principal); I10 Essential (primary) hypertension; E78.5 Hyperlipidemia, unspecified; E11.9 Type 2 diabetes mellitus without complications; G47.33 Obstructive sleep apnea (adult) (pediatric); Z99.89 Dependence on other enabling machines and devices; Z95.5 Presence of coronary angioplasty implant and graft; Z90.49 Acquired absence of other specified parts of digestive tract; Z87.891 Personal history of nicotine dependence; Z83.3 Family history of diabetes mellitus; Z82.49 Family history of ischemic heart disease and other diseases of the circulatory system; Z79.4 Long term (current) use of insulin; Z79.891 Long term (current) use of opiate analgesic; Z79.899 Other long term (current) drug therapy
CPT/HCPCS: 77001; 36561; 76937; C1788; J2250; J1200; J1644; J1642; J1100; J2405; J2001; J3010; J2704; J0690

== ENCOUNTER → 2018-11-25 | Outpatient (CLI) | payer OTHER ==
[2018-11-25 11:36] LABS: African American GFR (CKD) >90 (>60 ml/min/1.73 sqM); Blood Urea Nitrogen 12 mg/dL (9-20); Non-African American GFR(CKD) >90 (>60 ml/min/1.73 sqM)
--- NOTE | 2018-11-25 13:28 | CT ---
EXAMINATION TYPE: CT ChestAbdPelvis w con DATE OF EXAM: 11/25/2018 COMPARISON: CT chest June 15, 2018. CT abdomen and pelvis June 14, 2018. HISTORY: Malignant neoplasm of head of pancreas with liver metastases. CT DLP: 1175.6 mGycm. Automated Exposure Control for Dose Reduction was Utilized. CONTRAST: CT scan of the thorax, abdomen and pelvis is performed with IV Contrast, patient injected with 100 mL of Isovue 370. FINDINGS: LUNGS: Stable subcentimeter scarlike opacity lateral right upper lobe axial image 25. No new suspicio us greater than 4 mm parenchymal nodules or masses. No pleural effusion or pneumothorax is evident bi laterally. Marked improvement in prior visualized areas of focal increased density in small nodularit y. Some residual scarring right middle lobe abutting fissure axial image 101 is redemonstrated. MEDIASTINUM: There are no new greater than 1 cm hilar or mediastinal lymph nodes. Prominent but subc entimeter mediastinal lymph nodes are again seen. No cardiomegaly or pericardial effusion is seen. Co ronary artery calcification is present which is noted marked underlying coronary artery disease. Calc ifications at level of mitral valve are redemonstrated. OTHER: Bilateral gynecomastia is more prominent from prior study. LIVER/GB: Hepatic metastatic lesion anterior right hepatic dome axial image 122 measures 3.3 cm long axis versus 3.7 cm prior study image 16. Suspected smaller irregular hypodense lesions are not as wel l-seen on current study. No definitive new greater than 1 cm hypodense lesions. Overall heterogeneity redemonstrated. PANCREAS: Increased Atrophy and ductal dilatation of the pancreas with improvement in lesion at uncin ate process abutting SMA measuring approximately 2.6 x 2.0 cm image 157 versus 3.0 x 2.8 cm prior naila dy image 34. SPLEEN: No significant abnormality is seen. ADRENALS: No significant abnormality is seen. KIDNEYS: Symmetric cortical medullary uptake without excretion from both kidneys on delayed images. N o hydronephrosis is noted bilaterally. BOWEL: Oral contrast does not reach level of distal ileum making evaluation of bowel suboptimal. No s uspicious small and large bowel dilatation. Scattered colonic diverticula. Mild/moderate wall thicken ing distal left colon into the sigmoid colon and rectum. Mild colitis suspected. Correlate clinically. GENITAL ORGANS: Suboptimally evaluated due to right hip surgery LYMPH NODES: No greater than 1cm abdominal or pelvic lymph nodes are appreciated. OSSEOUS STRUCTURES: With metallic artifact from right hip arthroplasty causes streak artifact limitin g evaluation of pelvic structures. Facet arthropathy in the lower lumbar spine. Multilevel spurring m ost prominent in the thoracic spine. OTHER: Fairly moderate calcified plaque of the aorta extends into branch vessels. IMPRESSION: Partial treatment response suspected primary pancreatic lesion is diminished in size. Sm aller liver lesions stable or improved. Largest lesion is stable based on RECIST criteria. No new ade picious masses or adenopathy identified. Suspected new mild distal colitis. Correlate clinically.
== END | disposition home or self-care (01) ==
LOC: RADPROMAIN 10:29
PROVIDERS: ATTEND Internal Medicine Hematology & Oncology
DX: K76.9 Liver disease, unspecified (principal); C25.0 Malignant neoplasm of head of pancreas
CPT/HCPCS: 82565; 84520; 71260; 74177; J1642; Q9967

== ENCOUNTER 2018-12-02 16:01 | Emergency (ER) | payer OTHER ==
[2018-12-02 16:08] VITALS: RESP 16
--- NOTE | 2018-12-02 16:56 | ED ---
General Adult HPI - General Chief complaint: Extremity Problem,Nontraumatic Stated complaint: Leg and foot swelling, arm numbness Time Seen by Provider: 12/02/18 16:12 Source: patient Mode of arrival: wheelchair Limitations: no limitations - History of Present Illness Initial comments: Dictation was produced using [employer] dictation software. please excuse any grammatical, word or spelling errors. Chief Complaint: 63-year-old male past medical history of pancreatic cancer diagnosed since 4 months ago. His chief complaint today is left lower extremities swelling and paresthesias History of Present Illness: Shouldn't is a 63-year-old male he presents with left lower extremity swelling and paresthesias. Patient denies any pain. Patient states his symptoms of paresthesias are chronic however worse over the last 2-3 days. Patient also noted that over the last week he has been having worsening swelling in his left lower extremity. Patient states the swelling is of his calf and downward. Patient denies any history of DVT. Vision currently undergoing chemotherapy however recently he was given a break from chemotherapy given his history of paresthesias to the hands and legs. Patient denies any history of deep venous thrombosis. Patient on any anticoagulation medications. He is on Lyrica. No other complaints at this time. Denies any chest pain or shortness of breath. The ROS documented in this emergency department record has been reviewed and confirmed by me. Those systems with pertinent positive or negative responses have been documented in the HPI. All other systems are other negative and/or noncontributory. PHYSICAL EXAM: General Impression: Alert and oriented x3, not in acute distress HEENT: Normocephalic atraumatic, extra-ocular movements intact, pupils equal and reactive to light bilaterally, mucous membranes moist. Cardiovascular: Heart regular rate and rhythm, S1&S2 audible, no murmurs, rubs or gallops Chest: Lungs clear to auscultation bilaterally, no rhonchi, no wheeze, no rales Abdomen: Bowel sounds present, abdomen soft, non-tender, non-distended, no organomegaly Musculoskeletal: Pulses present and equal in all extremities, no peripheral edema, slight increasing girth of the left mid calf area versus the right, patient has difference in light touch sensation from the mid left tibia area and distally, no calf tenderness Motor: no focal deficits noted Neurological: CN II-XII grossly intact, no focal motor or sensory deficits noted Skin: Intact with no visualized rashes Psych: Normal affect and mood ED course: 63-year-old male presents with left lower extremity swelling and paresthesias that is worsening. He has a worsening history of paresthesia of the left leg. vital signs upon arrival shows heart rate 56, rest of vital signs within acceptable limits. Lab evaluation obtained. CBC, coag panel, metabolic panel is grossly unremarkable. Patient is a hemoglobin of 10.7 which is appears to be at around patient's baseline. Ultrasound of the left lower extremity deep venous system was unremarkable for DVT. Patient reevaluated at bedside found to be in stable medical condition. Patient symptoms are likely secondary to adverse effects from chemotherapy. He is told to follow-up with his oncologist regarding his symptoms. Patient understandable agreeable to plan. EKG interpretation: Ventricular rate 51, sinus regular,. 176, QS 140, QTc 438. No [place] prolongation, no QTC prolongation, no ST or T-wave changes noted. EKG compared to 06/23/2018 showing no changes. Overall, this EKG is unremarkable - Related Data Home Medications Medication Instructions Recorded Confirmed Insulin Degludec [Tresiba] 10 - 16 units SQ HS 06/14/18 12/02/18 INSULIN LISPRO (humaLOG) [humaLOG] See Protocol SQ AC-TID 06/28/18 12/02/18 HYDROcodone/APAP 5-325MG [[place] 1 - 2 tab PO Q6HR PRN 08/04/18 12/02/18 5-325] Morphine Sulfate [Morphine Sulfate 15 mg PO Q12H 08/04/18 12/02/18 ER] Pregabalin [Lyrica] 50 mg PO TID 12/02/18 12/02/18 Allergies Allergy/AdvReac Type Severity Reaction Status Date / Time No Known Allergies Allergy Verified 12/02/18 16:23 Review of Systems ROS Statement: Those systems with pertinent positive or pertinent negative responses have been documented in the HPI. ROS Other: All systems not noted in ROS Statement are negative. Past Medical History Past Medical History: Cancer, Diabetes Mellitus, Hyperlipidemia, Hypertension, S leep Apnea/CPAP/BIPAP Additional Past Medical History / Comment(s): dx pancreatic ca in June History of Any Multi-Drug Resistant Organisms: None Reported Past Surgical History: Bowel Resection, Heart Catheterization, Joint R eplacement, Orthopedic Surgery, Tonsillectomy Additional Past Surgical History / Comment(s): bowel surgery related to tear in mesenteric tissue. UPPP, repair torn bicep tendon, Left total knee, Right total hip Past Anesthesia/Blood Transfusion Reactions: No Reported Reaction Past Psychological History: No Psychological Hx Reported Smoking Status: Former smoker Past Alcohol Use History: None Reported Past Drug Use History: None Reported - Past Family History Father Family Medical History: Diabetes Mellitus, Hypertension, Myocardial Infarction ([place]) General Exam Limitations: no limitations Course Vital Signs 12/02/18 16:05 Temperature 97.6 F Pulse Rate 56 L Respiratory 16 Rate Blood Pressure 158/55 O2 Sat by Pulse 99 Oximetry Medical Decision Making - Lab Data Result diagrams: 12/02/18 17:16 12/02/18 17:16 Lab Results 12/02/18 12/02/18 12/02/18 Range/Units 17:16 17:16 17:16 WBC 6.7 (3.8-10.6) k/uL RBC 3.96 L (4.30-5.90) m/uL Hgb 10.7 L (13.0-17.5) gm/dL Hct 32.3 L (39.0-53.0) % MCV 81.4 (80.0-100.0) fL MCH 27.1 (25.0-35.0) pg MCHC 33.2 (31.0-37.0) g/dL RDW 20.5 H (11.5-15.5) % Plt Count 349 (150-450) k/uL Neutrophils % 75 % Lymphocytes % 12 % Monocytes % 10 % Eosinophils % 2 % Basophils % 1 % Neutrophils # 5.0 (1.3-7.7) k/uL Lymphocytes # 0.8 L (1.0-4.8) k/uL Monocytes # 0.6 (0-1.0) k/uL Eosinophils # 0.1 (0-0.7) k/uL Basophils # 0.1 (0-0.2) k/uL Anisocytosis Moderate Microcytosis Slight PT 11.5 (9.0-12.0) sec INR 1.1 (<1.2) APTT 29.5 (22.0-30.0) sec Sodium 135 L (137-145) mmol/L Potassium 4.3 (3.5-5.1) mmol/L Chloride 102 (98-107) mmol/L Carbon Dioxide 26 (22-30) mmol/L Anion Gap 7 mmol/L BUN 13 (9-20) mg/dL Creatinine 0.61 L (0.66-1.25) mg/dL Est GFR (CKD-EPI)AfAm >90 (>60 ml/min/1.73 sqM) Est GFR (CKD-EPI)NonAf >90 (>60 ml/min/1.73 sqM) Glucose 112 H (74-99) mg/dL Calcium 8.7 (8.4-10.2) mg/dL Ionized Calcium Annalisa 5.0 (4.5-5.3) mg/dL Phosphorus 4.1 (2.5-4.5) mg/dL Magnesium 2.0 (1.6-2.3) mg/dL Disposition Clinical Impression: Paresthesia, Left leg swelling Disposition: HOME SELF-CARE Condition: Good Instructions (If sedation given, give patient instructions): Paresthesia (ED) Is patient prescribed a controlled substance at d/c from ED?: No Referrals: Loc Gonzalez MD [Primary Care Provider] - 1-2 days Time of Disposition: 18:40
[2018-12-02 17:31] LABS: Anisocytosis Moderate; Basophils # (A) 0.1 k/uL (0-0.2); Basophils % (A) 1 %; Eosinophils # (A) 0.1 k/uL (0-0.7); Eosinophils % (A) 2 %; HCT 32.3 % (39.0-53.0); HGB 10.7 gm/dL (13.0-17.5); Lymphocytes # (A) 0.8 k/uL (1.0-4.8); Lymphocytes % (A) 12 %; MCH 27.1 pg (25.0-35.0); MCHC 33.2 g/dL (31.0-37.0); MCV 81.4 fL (80.0-100.0); Mean Platelet Volume 7.1; Microcytosis Slight; Monocytes # (A) 0.6 k/uL (0-1.0); Monocytes % (A) 10 %; Neutrophils % (A) 75 %; Platelet Count 349 k/uL (150-450); RBC 3.96 m/uL (4.30-5.90); RDW 20.5 % (11.5-15.5); WBC 6.7 k/uL (3.8-10.6)
[2018-12-02 17:39] LABS: INR 1.1 (<1.2); Partial Thromboplastin Time 29.5 sec (22.0-30.0); Prothrombin Time 11.5 sec (9.0-12.0)
[2018-12-02 17:46] LABS: African American GFR (CKD) >90 (>60 ml/min/1.73 sqM); Anion Gap 7 mmol/L; Blood Urea Nitrogen 13 mg/dL (9-20); Calcium 8.7 mg/dL (8.4-10.2); Carbon Dioxide 26 mmol/L (22-30); Chloride 102 mmol/L (98-107); Glucose 112 mg/dL (74-99); Phosphorus 4.1 mg/dL (2.5-4.5); Potassium 4.3 mmol/L (3.5-5.1); Sodium 135 mmol/L (137-145)
--- NOTE | 2018-12-02 18:08 | US ---
EXAMINATION TYPE: US venous doppler duplex LE LT DATE OF EXAM: 12/02/2018 4:53 PM COMPARISON: NONE CLINICAL HISTORY: evalute for DVT. Left lower leg swelling SIDE PERFORMED: Left TECHNIQUE: The lower extremity deep venous system is examined utilizing real time linear array sonog franky with graded compression, doppler sonography and color-flow sonography. VESSELS IMAGED: External Iliac Vein (EIV) Common Femoral Vein Deep Femoral Vein Greater Saphenous Vein * Femoral Vein Popliteal Vein Small Saphenous Vein * Proximal Calf Veins (* superficial vessels) Left Leg: Appears negative for DVT IMPRESSION: No evidence of deep venous thrombosis in the left leg.
[2018-12-02 18:53] VITALS: BP 157/60; PULSE 65; TEMP 97.8
== END 2018-12-02 18:53 | disposition home or self-care (01) ==
LOC: EC 16:01
DX: M79.89 Other specified soft tissue disorders (principal); R20.2 Paresthesia of skin; C25.9 Malignant neoplasm of pancreas, unspecified; E11.9 Type 2 diabetes mellitus without complications; G47.30 Sleep apnea, unspecified; Z87.891 Personal history of nicotine dependence; Z79.4 Long term (current) use of insulin; Z79.891 Long term (current) use of opiate analgesic; Z79.899 Other long term (current) drug therapy; Z92.21 Personal history of antineoplastic chemotherapy; Z96.652 Presence of left artificial knee joint; Z99.89 Dependence on other enabling machines and devices
CPT/HCPCS: 36415; 80048; 82330; 83735; 84100; 85025; 85610; 85730; 93005; 99284